=== PATIENT | female | born 1955 | race Caucasian/White ===

== ENCOUNTER 2023-01-31 07:06 | Outpatient (CLI) | payer MEDICARE, OTHER | END 2023-01-31 07:07 | disposition home or self-care (01) | LOC: LAB.S 07:06 | PROVIDERS: ATTEND Specialist | DX: R19.00 Intra-abdominal and pelvic swelling, mass and lump, unspecified site (principal); D39.9 Neoplasm of uncertain behavior of female genital organ, unspecified | CPT/HCPCS: 36415; 86304 ==

== ENCOUNTER 2023-04-15 07:53 | Outpatient (CLI) | payer MEDICARE, OTHER ==
[2023-04-15 14:49] LABS: BASOPHILS # (AUTO) 0.1 10^3/uL (0.0-0.1); BASOPHILS % (AUTO) 1.7 %; EOSINOPHILS # (AUTO) 0.1 10^3/uL (0.0-0.7); EOSINOPHILS % (AUTO) 3.8 %; HCT - HEMATOCRIT 38.5 % (37.0-47.0); HGB - HEMOGLOBIN 11.9 g/dL (12.0-16.0); LYMPHOCYTES # (AUTO) 1.2 10^3/uL (1.5-3.5); LYMPHOCYTES % (AUTO) 39.7 %; MEAN CORPUSCULAR HEMOGLOBIN 29.8 pg (27.0-31.0); MEAN CORPUSCULAR HGB CONC 30.9 g/dL (32.0-36.0); MEAN CORPUSCULAR VOLUME 96.5 fL (81.0-99.0); MEAN PLATELET VOLUME 10.5 fL (7.9-10.8); MONOCYTES # (AUTO) 0.4 10^3/uL (0.0-1.0); MONOCYTES % (AUTO) 14.8 %; NEUTROPHILS # (AUTO) 1.2 10^3/uL (1.5-6.6); PLT - PLATELET COUNT 254 10^3/uL (130-450); RED BLOOD COUNT 3.99 10^6/uL (4.20-5.40); RED CELL DISTRIBUTION WIDTH 15.4 % (12.0-15.0); WHITE BLOOD COUNT 2.9 x10^3/uL (4.8-10.8)
[2023-04-15 15:04] LABS: SLIDE REVIEW? Indicated
[2023-04-15 15:47] LABS: DIFFERENTIAL COMMENT MANUAL=AUTO DIFF; PLATELET ESTIMATE, MANUAL NORMAL (130-450,000) (NORMAL); PLATELET MORPHOLOGY NORMAL APPEARANCE (NORMAL); RBC MORPHOLOGY (MULTIPLE) NORMAL APPEARANCE (NORMAL)
== END 2023-04-15 07:54 | disposition home or self-care (01) ==
LOC: LAB.S 07:53
PROVIDERS: ATTEND Specialist
DX: Z51.11 Encounter for antineoplastic chemotherapy (principal); C56.9 Malignant neoplasm of unspecified ovary
CPT/HCPCS: 36415; 85025

== ENCOUNTER 2023-05-07 07:43 | Outpatient (CLI) | payer MEDICARE, OTHER ==
[2023-05-07 15:05] LABS: BASOPHILS % (AUTO) 0.9 %; EOSINOPHILS # (AUTO) 0.3 10^3/uL (0.0-0.7); EOSINOPHILS % (AUTO) 6.5 %; HCT - HEMATOCRIT 38.4 % (37.0-47.0); LYMPHOCYTES # (AUTO) 1.7 10^3/uL (1.5-3.5); LYMPHOCYTES % (AUTO) 37.8 %; MEAN CORPUSCULAR HEMOGLOBIN 29.5 pg (27.0-31.0); MEAN CORPUSCULAR HGB CONC 31.3 g/dL (32.0-36.0); MEAN CORPUSCULAR VOLUME 94.3 fL (81.0-99.0); MEAN PLATELET VOLUME 10.5 fL (7.9-10.8); MONOCYTES # (AUTO) 0.2 10^3/uL (0.0-1.0); MONOCYTES % (AUTO) 3.4 %; NEUTROPHILS # (AUTO) 2.3 10^3/uL (1.5-6.6); NEUTROPHILS % (AUTO) 50.9 %; PLT - PLATELET COUNT 260 10^3/uL (130-450); RED BLOOD COUNT 4.07 10^6/uL (4.20-5.40); RED CELL DISTRIBUTION WIDTH 16.1 % (12.0-15.0); WHITE BLOOD COUNT 4.4 x10^3/uL (4.8-10.8)
== END 2023-05-07 07:44 | disposition home or self-care (01) ==
LOC: LAB.S 07:43
PROVIDERS: ATTEND Specialist
DX: Z51.11 Encounter for antineoplastic chemotherapy (principal); C56.9 Malignant neoplasm of unspecified ovary
CPT/HCPCS: 36415; 85025

== ENCOUNTER 2023-07-14 07:04 | Outpatient (CLI) | payer MEDICARE, OTHER ==
[2023-07-14 14:45] LABS: BASOPHILS # (AUTO) 0.1 10^3/uL (0.0-0.1); BASOPHILS % (AUTO) 1.6 %; EOSINOPHILS # (AUTO) 0.2 10^3/uL (0.0-0.7); EOSINOPHILS % (AUTO) 4.5 %; HGB - HEMOGLOBIN 12.1 g/dL (12.0-16.0); LYMPHOCYTES # (AUTO) 1.4 10^3/uL (1.5-3.5); LYMPHOCYTES % (AUTO) 27.5 %; MEAN CORPUSCULAR HGB CONC 30.3 g/dL (32.0-36.0); MEAN CORPUSCULAR VOLUME 102.6 fL (81.0-99.0); MEAN PLATELET VOLUME 10.9 fL (7.9-10.8); MONOCYTES # (AUTO) 0.6 10^3/uL (0.0-1.0); MONOCYTES % (AUTO) 11.8 %; NEUTROPHILS # (AUTO) 2.8 10^3/uL (1.5-6.6); NEUTROPHILS % (AUTO) 54.2 %; PLT - PLATELET COUNT 245 10^3/uL (130-450); RED CELL DISTRIBUTION WIDTH 18.3 % (12.0-15.0); WHITE BLOOD COUNT 5.2 x10^3/uL (4.8-10.8)
[2023-07-14 15:01] LABS: ALBUMIN 4.3 g/dL (3.2-5.5); ALBUMIN/GLOBULIN RATIO 1.5 (1.0-2.2); BILIRUBIN,TOTAL 0.6 mg/dL (0.2-1.0); CALCIUM 9.6 mg/dL (8.5-10.3); CREATININE 0.6 mg/dL (0.6-1.3); POTASSIUM 4.4 mmol/L (3.5-4.5); TOTAL PROTEIN 7.1 g/dL (6.4-8.9)
[2023-07-14 15:03] LABS: CA 125 8.5 U/mL (0.5-35.0)
== END 2023-07-14 07:05 | disposition home or self-care (01) ==
LOC: LAB.S 07:04
PROVIDERS: ATTEND Specialist
DX: Z51.11 Encounter for antineoplastic chemotherapy (principal); C56.9 Malignant neoplasm of unspecified ovary
CPT/HCPCS: 36415; 80053; 85025; 86304

== ENCOUNTER 2023-08-29 16:27 | Outpatient (CLI) | payer MEDICARE, OTHER | END 2023-08-29 23:59 | disposition critical access hospital (66) | LOC: EMS 16:27 | PROVIDERS: ATTEND Emergency Medicine | DX: S06.9X1A Unspecified intracranial injury with loss of consciousness of 30 minutes or less, initial encounter (principal); R41.82 Altered mental status, unspecified; W10.8XXA Fall (on) (from) other stairs and steps, initial encounter; Y92.028 Other place in mobile home as the place of occurrence of the external cause | CPT/HCPCS: A0425; A0429 ==

== ENCOUNTER 2023-08-29 16:44 | Emergency (ER) | payer MEDICARE, OTHER ==
[2023-08-29 17:00] LABS: BASOPHILS # (AUTO) 0.1 10^3/uL (0.0-0.1); BASOPHILS % (AUTO) 0.8 %; EOSINOPHILS # (AUTO) 0.2 10^3/uL (0.0-0.7); EOSINOPHILS % (AUTO) 2.5 %; HCT - HEMATOCRIT 40.4 % (37.0-47.0); LYMPHOCYTES # (AUTO) 2.4 10^3/uL (1.5-3.5); LYMPHOCYTES % (AUTO) 28.5 %; MEAN CORPUSCULAR HEMOGLOBIN 31.9 pg (27.0-31.0); MEAN CORPUSCULAR HGB CONC 32.2 g/dL (32.0-36.0); MEAN CORPUSCULAR VOLUME 99.3 fL (81.0-99.0); MEAN PLATELET VOLUME 9.8 fL (7.9-10.8); MONOCYTES # (AUTO) 0.6 10^3/uL (0.0-1.0); MONOCYTES % (AUTO) 7.7 %; NEUTROPHILS % (AUTO) 59.5 %; PLT - PLATELET COUNT 224 10^3/uL (130-450); RED BLOOD COUNT 4.07 10^6/uL (4.20-5.40); RED CELL DISTRIBUTION WIDTH 13.7 % (12.0-15.0); WHITE BLOOD COUNT 8.3 x10^3/uL (4.8-10.8)
[2023-08-29 17:11] LABS: ALBUMIN 4.2 g/dL (3.2-5.5); ALBUMIN/GLOBULIN RATIO 1.4 (1.0-2.2); BILIRUBIN,TOTAL 0.3 mg/dL (0.2-1.0); CREATININE 0.8 mg/dL (0.6-1.3); POTASSIUM 3.8 mmol/L (3.5-4.5); TOTAL PROTEIN 7.1 g/dL (6.4-8.9)
--- NOTE | 2023-08-29 17:15 | ED Physician Documentation ---
History of Present Illness - Stated complaint Stated Complaint: GLF/HEAD INJ - Chief complaint Chief Complaint: Trauma Nikunj - History obtained from History obtained from: Patient, EMS - History of Present Illness Timing: Today, How many hours ago (1) Pain level max: 0 Pain level now: 0 - Additonal information Additional information: Patient is a 68-year-old female who is brought in by EMS after a fall out of her trailer today. Reportedly was unconscious for about 3 to 5 minutes. She is disoriented to time and place. She does not know who she is. She is unable to give any of her medical history. EMS states that she takes rivaroxaban. They do not know any other medical history. Review of Systems Unable to obtain: [facility] PAST MEDICAL HISTORY - Past Medical History Past Medical History: Yes Other Past Medical History: ovarian cancer - Allergies Allergies/Adverse Reactions: Allergies Allergy/AdvReac Type Severity Reaction Status Date / Time No Known Drug Allergies Allergy Verified 08/29/23 17:17 - Living Situation Living Arrangement: reports: At home - Social History ETOH Use: Other (unknown) - Family History Family history: reports: Non contributory PD ED PE NORMAL - Vitals Vital signs reviewed: Yes - General General: No acute distress, Well developed/nourished, Other (alert, oriented to self only) - HEENT HEENT: PERRL, EOMI, Moist mucous membranes, Pharynx benign, Other (Large R post scalp hemaoma) - Neck Neck: No bony TTP - Cardiac Cardiac: RRR, Strong equal pulses - Respiratory Respiratory: No respiratory distress, Clear bilaterally - Abdomen Abdomen: Soft, Non tender, Non distended - Back Back: No spinal TTP - Derm Derm: Warm and dry - Extremities Extremities: No deformity, Normal ROM s pain - Neuro Neuro: crude tester 2-12 intact, No motor deficit, No sensory deficit, Normal speech Eye Opening: Spontaneous Motor: Obeys Commands Verbal: Confused GCS Score: 14 Results - Vitals Vitals: Vital Signs - 24 hr 08/29/23 17:09 Temperature 36.8 C Heart Rate 65 Respiratory 21 Rate Blood Pressure 129/58 L O2 Saturation 94 Oxygen O2 Source Room air - Labs Labs: Laboratory Tests 08/29/23 08/29/23 08/29/23 16:55 16:55 16:55 WBC 8.3 RBC 4.07 L Hgb 13.0 Hct 40.4 MCV 99.3 H MCH 31.9 H MCHC 32.2 RDW 13.7 Plt Count 224 MPV 9.8 Neut # (Auto) 5.0 Lymph # (Auto) 2.4 Toombs # (Auto) 0.6 Eos # (Auto) 0.2 Baso # (Auto) 0.1 Absolute Nucleated RBC 0.00 Nucleated RBC % 0.0 Sodium 140 Potassium 3.8 Chloride 103 Carbon Dioxide 27 Anion Gap 10.0 BUN 15 Creatinine 0.8 Estimated GFR (MDRD) 72 L Glucose 102 Calcium 9.0 Total Bilirubin 0.3 AST 28 ALT 29 Alkaline Phosphatase 66 Total Protein 7.1 Albumin 4.2 Globulin 2.9 Albumin/Globulin Ratio 1.4 Lipase 45 Ethyl Alcohol 261.9 - Rads (name of study) head CT Relevant Findings:: Final report received, See rad report cervical spine CT Relevant Findings:: Final report received, See rad report PD Medical Decision Making - ED course Complexity details: reviewed results, re-evaluated patient, considered differential, d/w patient, d/w outside solar sales consultant ED course: Patient was activated as a modified trauma due to being on Xarelto. Her head CT shows a subarachnoid hemorrhage in the right cerebral convexity. She has no midline shift. Also has a large right scalp hematoma with no skull fracture. CT scan of the cervical spine was performed as well. This does not show any acute abnormalities. Patient has no chest wall tenderness. Movement of all 4 extremities without any pain over any of the major joints. Kcentra 5000 units was given. Discussed the case with Dr. Jc Greco, emergency department at [facility] who graciously accepts in transfer. Patient will be flown via [facility] to [facility] emergency department. COBRA forms completed. Patient is awake, alert, but confused with repetitive questioning at time of transfer. Protecting her own airway. This document was made in part using voice recognition software. While efforts are made to proofread this document, sound alike and grammatical errors may occur. PROCEDURE: Head WO INDICATIONS: fall, head/neck injury TECHNIQUE: Noncontrast 4.5 mm thick angled axial sections acquired from the foramen magnum to the vertex. For radiation dose reduction, the following was used: automated exposure control, adjustment of mA and/or kV according to patient size. COMPARISON: None. FINDINGS: Image quality: Excellent. Brain and CSF: Hyperdense subarachnoid blood products are seen along the right cerebral convexity overlying the frontal, temporal, and parietal lobes. Hyperdense blood is also seen in the right perimesencephalic cistern extending upward into the pineal region. Trace subarachnoid blood products also seen along the right parafalcine region and the left temporal convexity. No significant mass effect or midline shift. Ventricles are normal in size. No definite in traventricular blood products. No intraparenchymal hemorrhage or contusion. Skull and face: Large scalp hematoma centered in the right parietal region. No adjacent skull fracture is seen. Calvarium otherwise appears to be intact. Included facial bones are intact. Sinuses: Visualized sinuses and mastoids are clear. IMPRESSION: 1.Subarachnoid hemorrhage predominantly along the right cerebral convexity with trace subarachnoid blood products in the right parafalcine region and left cerebral convexity. Hyperdense blood products also seen in the right paramesencephalic cistern. 2.No intraparenchymal hemorrhage or contusion. No mass effect or midline shift. Ventricles are normal in size. 3.Large right parietal scalp hematoma. No skull fracture. EXAM: [id number] CT/CSPWO ([id number]) PROCEDURE: Cervical Spine WO INDICATIONS: fall, head/neck injury TECHNIQUE: Noncontrast 3 mm thick sections acquired from the skull base to the T4 level. Sagittal and coronal reformats were then constructed. For radiation dose reduction, the following was used: automated exposure control, adjustment of mA and/or kV according to patient size. COMPARISON: Correlation is made with the accompanying imaging. FINDINGS: Image quality: This study is limited by quantum mottle artifact. Bones: No fractures or dislocations. Visualized superior ribs are intact. Moderate generalized cervical spine degenerative change can be seen. Soft tissues: Prevertebral soft tissues are normal in thickness. No paravertebral hematomas. No apical pneumothoraces. There is partial visualization of a right-sided chest port IMPRESSION: Negative for acute cervical spine fracture. Moderate generalized underlying cervical spine degenerative change can be seen. Departure - Departure Disposition: 02 Transfer Acute Care Hosp Clinical Impression: Traumatic subarachnoid hemorrhage Qualifiers: Encounter type: initial encounter Loss of consciousness presence/duration: with LOC of 30 min or less Qualified Code(s): S06.6X1A - Traumatic subarachnoid hemorrhage with loss of consciousness of 30 minutes or less, initial encounter Condition: Stable Forms: PCP List
[2023-08-29] MEDS ORDERED: PROTHROMBIN COMPLEX CONC 500 UNIT VIAL IVP STA (17:30)
--- NOTE | 2023-08-29 17:39 | CT Report ---
PROCEDURE: Head WO INDICATIONS: fall, head/neck injury TECHNIQUE: Noncontrast 4.5 mm thick angled axial sections acquired from the foramen magnum to the vertex. For r adiation dose reduction, the following was used: automated exposure control, adjustment of mA and/or kV according to patient size. COMPARISON: None. FINDINGS: Image quality: Excellent. Brain and CSF: Hyperdense subarachnoid blood products are seen along the right cerebral convexity ov erlying the frontal, temporal, and parietal lobes. Hyperdense blood is also seen in the right perimes encephalic cistern extending upward into the pineal region. Trace subarachnoid blood products also se en along the right parafalcine region and the left temporal convexity. No significant mass effect or midline shift. Ventricles are normal in size. No definite intraventricular blood products. No intrapa renchymal hemorrhage or contusion. Skull and face: Large scalp hematoma centered in the right parietal region. No adjacent skull fractur e is seen. Calvarium otherwise appears to be intact. Included facial bones are intact. Sinuses: Visualized sinuses and mastoids are clear. IMPRESSION: 1.Subarachnoid hemorrhage predominantly along the right cerebral convexity with trace subarachnoid bl ood products in the right parafalcine region and left cerebral convexity. Hyperdense blood products a lso seen in the right paramesencephalic cistern. 2.No intraparenchymal hemorrhage or contusion. No mass effect or midline shift. Ventricles are normal in size. 3.Large right parietal scalp hematoma. No skull fracture. Findings were discussed with the referring physician, Dr. Hickman, by telephone on 08/29/2023 at 5:34 P M. Reviewed by: Didier Mensah MD on 08/29/2023 5:38 PM PDT Approved by: Didier Mensah MD on 08/29/2023 5:38 PM PDT Station ID: [id number]
--- NOTE | 2023-08-29 17:40 | CT Report ---
PROCEDURE: Cervical Spine WO INDICATIONS: fall, head/neck injury TECHNIQUE: Noncontrast 3 mm thick sections acquired from the skull base to the T4 level. Sagittal and coronal r eformats were then constructed. For radiation dose reduction, the following was used: automated exp osure control, adjustment of mA and/or kV according to patient size. COMPARISON: Correlation is made with the accompanying imaging. FINDINGS: Image quality: This study is limited by quantum mottle artifact. Bones: No fractures or dislocations. Visualized superior ribs are intact. Moderate generalized cervical spine degenerative change can be seen. Soft tissues: Prevertebral soft tissues are normal in thickness. No paravertebral hematomas. No ap ical pneumothoraces. There is partial visualization of a right-sided chest port IMPRESSION: Negative for acute cervical spine fracture. Moderate generalized underlying cervical spine degenerative change can be seen. Reviewed by: Srini Zelaya MD on 08/29/2023 4:38 PM RICARDO Approved by: Srini Zelaya MD on 08/29/2023 4:38 PM RICARDO Station ID: [id number]
[2023-08-29] MEDS: PROTHROMBIN COMPLEX CONC 500 UNIT VIAL IVP STA (18:00)
[2023-08-29 19:50] VITALS: BP 108/95; O2SAT 97
== END 2023-08-29 18:00 | disposition short-term general hospital (02) ==
LOC: EDUNIT# → ED 16:44
DX: S06.6X1A Traumatic subarachnoid hemorrhage with loss of consciousness of 30 minutes or less, initial encounter (principal); S00.03XA Contusion of scalp, initial encounter; W17.89XA Other fall from one level to another, initial encounter; Y92.028 Other place in mobile home as the place of occurrence of the external cause; Z79.01 Long term (current) use of anticoagulants
CPT/HCPCS: 36415; 70450; 72125; 80053; 83690; 85025; 96374; 99285; G0480; J7168; 82077